=== PATIENT | female | born 1980 | race Hispanic/Latino ===

== ENCOUNTER 2017-11-01 14:10 | Emergency (ER) | payer MEDICAID ==
[2017-11-01 15:10] VITALS: BMI 27.4
[2017-11-01 15:26] VITALS: BP 117/74; PULSE 85; RESP 16; TEMP 98.5; O2SAT 100
[2017-11-01 16:10] LABS: URINE BILIRUBIN NEGATIVE (NEGATIVE); URINE BLOOD NEGATIVE (NEGATIVE); URINE GLUCOSE (UA) NEGATIVE (NEGATIVE); URINE LEUKOCYTE ESTERASE NEGATIVE Leu/uL (NEGATIVE); URINE PROTEIN NEGATIVE mg/dL (<30 mg/dL); URINE UROBILINOGEN 0.2 E.U./dL (<1 E.U./dL)
[2017-11-01 16:11] LABS: URINE APPEARANCE CLEAR (CLEAR); URINE COLOR LIGHT YELLOW (YELLOW)
--- NOTE | 2017-11-01 16:23 | ED PDOC ---
Arrival/HPI - General Chief Complaint: Female Genitourinary Time Seen by Provider: 11/01/17 14:30 Historian: Patient - History of Present Illness Narrative History of Present Illness (Text): 11/01/17 16:19 Pt is a 37 yr old f with PMH kidney infection 17 yrs ago, presents today with pain on urination, low back and suprapubic pain and fevers for the past 3-4 days. Denies hematuria, trauma, n/v/d, cp, sob or any other complaints. Pt reports IV drug use in the past and suboxone treatments with last dose approx 5 days ago. Past surgical history includes inguinal hernia with mesh repair. 11/01/17 17:29 Time/Duration: 1 week Symptom Onset: Gradual Symptom Course: Unchanged Quality: Aching, Pressure Activities at Onset: Rest Context: Home, Work Past Medical History - Infectious Disease Hx of Infectious Diseases: None - Cardiac Hx Cardiac Disorders: No - Pulmonary Hx Respiratory Disorders: Yes Hx Asthma: Yes - Neurological Hx Neurological Disorder: No - HEENT Hx HEENT Disorder: No - Renal Hx Renal Disorder: No - Endocrine/Metabolic Hx Endocrine Disorders: No - Hematological/Oncological Hx Blood Disorders: No - Integumentary Hx Dermatological Disorder: No - Musculoskeletal/Rheumatological Hx Musculoskeletal Disorders: No - Gastrointestinal Hx Gastrointestinal Disorders: No - Genitourinary/Gynecological Hx Genitourinary Disorders: No - Psychiatric Hx Psychophysiologic Disorder: No Hx Substance Use: No - Anesthesia Hx Anesthesia: No Family/Social History Family/Social History: No Known Family HX Smoking Status: Light Smoker < 10 Cigarettes Daily Hx Alcohol Use: Yes Frequency of alcohol use: Socially Hx Substance Use: Yes Substance used: Previous IV drug user; Suboxone Route: Oral, Intravenous/IM Hx Substance Use Treatment: Yes (Previous IV drug user; Suboxone ) Allergies/Home Meds Allergies/Adverse Reactions: Allergies No Known Allergies Allergy (Verified 11/01/17 15:10) Review of Systems - Review of Systems Constitutional: Normal, Fevers, Night Sweats Eyes: Normal ENT: Normal Respiratory: Normal Cardiovascular: Normal Gastrointestinal: Normal, Abdominal Pain (lower abdominal) Genitourinary Female: Normal Musculoskeletal: Normal, Back Pain Skin: Normal Neurological: Normal Endocrine: Normal Hemo/Lymphatic: Normal Psychiatric: Normal Physical Exam Vital Signs Reviewed: Yes Vital Signs Temp Pulse Resp BP Pulse Ox 11/01/17 15:25 98.5 F 85 16 117/74 100 Temperature: Afebrile Blood Pressure: Normal Pulse: Regular Respiratory Rate: Normal Appearance: Positive for: Non-Toxic, Comfortable Pain Distress: Moderate Mental Status: Positive for: Alert and Oriented X 3 - Systems Exam Head: Present: Atraumatic, Normocephalic Pupils: Present: PERRL Extroacular Muscles: Present: EOMI Conjunctiva: Present: Normal Mouth: Present: Moist Mucous Membranes Neck: Present: Normal Range of Motion Respiratory/Chest: Present: Clear to Auscultation, Good Air Exchange. No: Respiratory Distress, Accessory Muscle Use Cardiovascular: Present: Regular Rate and Rhythm, Normal S1, S2. No: Murmurs Abdomen: Present: Tenderness (suprapubic pain), Normal Bowel Sounds. No: Distention, Peritoneal Signs Back: Present: Normal Inspection, CVA Tenderness Upper Extremity: Present: Normal Inspection. No: Cyanosis, Edema Lower Extremity: Present: Normal Inspection. No: Edema Neurological: Present: GCS=15, CN II-XII Intact, Speech Normal Skin: Present: Warm, Dry, Normal Color. No: Rashes Psychiatric: Present: Alert, Oriented x 3, Normal Insight, Normal Concentration Medical Decision Making ED Course and Treatment: 11/01/17 16:21 Impression Pt is a 37 yr old f with PMH kidney infection 17 yrs ago, presents today with pain on urination, low back and suprapubic pain and fevers for the past 3-4 days. (+) Right CVA tenderness Plan UA poc hcg assess and dispo Progress Note DW pt results of UA; CT suggested to r/o stones Pt resting comfortably, no apparent discomfort Advised to take Macrobid only if dysuria and frequency do not resolve F/u with PMD CT revealed fecal bulk; colace prescribed and pt informed on causes VSS on DC, ambulated well out of the ED 11/01/17 17:15 - Lab Interpretations Lab Results: Lab Results 11/01/17 16:03: Urine Color Light yellow, Urine Appearance Clear, Urine pH 6.0, Ur Specific [place] <= 1.005, Urine Protein Negative, Urine Glucose (UA) Negative, Urine Ketones Negative, Urine Blood Negative, Urine Nitrate Negative, Urine Bilirubin Negative, Urine Urobilinogen 0.2, Ur Leukocyte Esterase Negative I have reviewed the lab results: Yes (UA unremarkable) - RAD Interpretation Narrative RAD Interpretations (Text): 11/01/17 17:36 LOWER THORAX: Unremarkable. LIVER: Unremarkable. No gross lesion or ductal dilatation. GALLBLADDER AND BILE DUCTS: Unremarkable. PANCREAS: Unremarkable. No gross lesion or ductal dilatation. SPLEEN: Unremarkable. ADRENALS: Unremarkable. No mass. KIDNEYS AND URETERS: Unremarkable. No hydronephrosis. No solid mass. VASCULATURE: Unremarkable. No aortic aneurysm. BOWEL: Constipation without fecal impaction or obstruction. APPENDIX: Surgical clips at the base of the cecum indicative of prior appendectomy PERITONEUM: Unremarkable. No free fluid. No free air. LYMPH NODES: Unremarkable. No enlarged lymph nodes. BLADDER: Unremarkable. REPRODUCTIVE: Unremarkable. BONES: No acute fractureTech. OTHER FINDINGS: None. IMPRESSION: No acute findings related to/accounting for the clinical presentation. Additional benign and/or incidental findings described above. Radiology Orders: 11/01/17 16:27 ABD & PELVIS W/O PO OR IV CONT [CT] Stat Disposition/Present on Arrival - Present on Arrival Any Indicators Present on Arrival: Yes History of DVT/PE: No History of Uncontrolled Diabetes: No Urinary Catheter: No History of Decub. Ulcer: No History Surgical Site Infection Following: None - Disposition Have Diagnosis and Disposition been Completed?: Yes Diagnosis: Dysuria, Constipation Disposition: HOME/ ROUTINE Disposition Time: 17:38 Patient Plan: Discharge Condition: GOOD Discharge Instructions (ExitCare): Constipation in Adults, Dysuria, Adult (DC) Additional Instructions: Please follow up with your Primary Care Doctor in the next 24 hrs. If you have worsening pain with fever, return to the emergency department. Prescriptions: Acetaminophen [Acetaminophen Extra Strength] 500 mg PO Q6 #20 tablet Docusate Sodium [Colace] 200 mg PO DAILY #5 capsule Nitrofurantoin Macrocrystal [Nitrofurantoin] 100 mg PO BID 7 Days #14 capsule Referrals: PCP,NO [Primary Care Provider] - Follow up with primary Forms: [facility] [employer] [facility] (Greenlandic), WORK NOTE
--- NOTE | 2017-11-01 17:20 | CT ---
PROCEDURE: CT Abdomen and Pelvis without intravenous contrast HISTORY: CVA tenderness Negative test (concurrent with this examination). COMPARISON: None. TECHNIQUE: Unenhanced study. Neither oral nor intravenous contrast administered. Radiation dose: Total exam DLP = 380.10 mGy-cm. This CT exam was performed using one or more of the following dose reduction techniques: Automated exposure control, adjustment of the mA and/or kV according to patient size, and/or use of iterative reconstruction technique. FINDINGS: LOWER THORAX: Unremarkable. LIVER: Unremarkable. No gross lesion or ductal dilatation. GALLBLADDER AND BILE DUCTS: Unremarkable. PANCREAS: Unremarkable. No gross lesion or ductal dilatation. SPLEEN: Unremarkable. ADRENALS: Unremarkable. No mass. KIDNEYS AND URETERS: Unremarkable. No hydronephrosis. No solid mass. VASCULATURE: Unremarkable. No aortic aneurysm. BOWEL: Constipation without fecal impaction or obstruction. APPENDIX: Surgical clips at the base of the cecum indicative of prior appendectomy PERITONEUM: Unremarkable. No free fluid. No free air. LYMPH NODES: Unremarkable. No enlarged lymph nodes. BLADDER: Unremarkable. REPRODUCTIVE: Unremarkable. BONES: No acute fractureTech. OTHER FINDINGS: None. IMPRESSION: No acute findings related to/accounting for the clinical presentation. Additional benign and/or incidental findings described above.
== END 2017-11-01 18:00 | disposition home or self-care (01) ==
LOC: ED 14:10
DX: K59.00 Constipation, unspecified (principal); R30.0 Dysuria; F17.210 Nicotine dependence, cigarettes, uncomplicated

== ENCOUNTER 2017-12-12 12:33 | Emergency (ER) | payer MEDICAID ==
[2017-12-12 12:33] VITALS: BMI 27.4
[2017-12-12 13:50] VITALS: O2SAT 100
[2017-12-12 15:06] LABS: URINE APPEARANCE CLEAR (CLEAR); URINE BILIRUBIN NEGATIVE (NEGATIVE); URINE BLOOD NEGATIVE (NEGATIVE); URINE COLOR YELLOW (YELLOW); URINE GLUCOSE (UA) NEGATIVE (NEGATIVE); URINE LEUKOCYTE ESTERASE NEGATIVE Leu/uL (NEGATIVE); URINE PROTEIN NEGATIVE mg/dL (<30 mg/dL); URINE UROBILINOGEN 0.2 E.U./dL (<1 E.U./dL)
[2017-12-12 15:10] LABS: BASO # 0.02 K/mm3 (0.0-2.0); BASO % 0.2 % (0.0-3.0); EOS % 0.3 % (1.5-5.0); GRAN # 5.67 (1.4-6.5); GRAN % 60.4 % (50.0-68.0); HEMOGLOBIN 10.3 g/dL (12.0-16.0); LYMPH # 3.1 (1.2-3.4); LYMPH % 33.3 % (22.0-35.0); MEAN CELL VOLUME 79.6 fl (80.0-105.0); MEAN CORPUSCULAR HEMOGLOBIN 24.5 pg (25.0-35.0); MEAN CORPUSCULAR HGB CONC 30.7 g/dl (31.0-37.0); MEAN PLATELET VOLUME 9.7 fl (7.0-11.0); MONO # 0.5 (0.1-0.6); MONO % 5.8 % (1.0-6.0); RBC 4.21 10^6/uL (3.5-6.1); RED CELL DISTRIBUTION WIDTH 15.9 % (11.5-14.5); WHITE BLOOD COUNT 9.4 10^3/ul (4.5-11.0)
[2017-12-12 15:22] LABS: ALB/GLOB RATIO 1.3 (1.1-1.8); ALBUMIN 4.4 g/dL (3.0-4.8); ALT/SGPT 46 U/L (7-56); AST/SGOT 31 U/L (14-36); BLOOD UREA NITROGEN 14 mg/dL (7-21); CALCIUM 9.5 mg/dL (8.4-10.5); GFR AFRICAN-AMERICAN > 60; GFR NON-AFRICAN AMERICAN > 60
--- NOTE | 2017-12-12 16:11 | ED PDOC ---
Arrival/HPI - General Chief Complaint: Abnormal Skin Integrity Time Seen by Provider: 12/12/17 14:33 Historian: Patient - History of Present Illness Narrative History of Present Illness (Text): 12/12/17 16:07 37-year-old female presents today with pruritus for the past 2 weeks. Patient states that she's noticed that the entire body has been intermittently itchy for the past 2 months. Patient denies new soaps lotions or detergents or perfumes. Patient denies any new medications. Patient states she is a history of hepatitis C from previous drug use. Patient states she is completely clean from any drug use. Patient denies chest pain or shortness of breath. Denies fevers or chills. Patient denies abdominal pain. No nausea or vomiting. Patient denies anyone else with similar symptoms. No other complaints Time/Duration: > week (2 weeks) Past Medical History - Provider Review Nursing Documentation Reviewed: Yes - Travel History Have you recently traveled outside [place] w/in the past 3 mons?: No - Infectious Disease Hx of Infectious Diseases: None - Cardiac Hx Cardiac Disorders: No - Pulmonary Hx Respiratory Disorders: Yes Hx Asthma: Yes - Neurological Hx Neurological Disorder: No - HEENT Hx HEENT Disorder: No - Renal Hx Renal Disorder: No - Endocrine/Metabolic Hx Endocrine Disorders: No - Hematological/Oncological Hx Hepatitis C: Yes - Integumentary Hx Dermatological Disorder: No - Musculoskeletal/Rheumatological Hx Musculoskeletal Disorders: No - Gastrointestinal Hx Gastrointestinal Disorders: No - Genitourinary/Gynecological Hx Genitourinary Disorders: No - Psychiatric Hx Psychophysiologic Disorder: No Hx Substance Use: Yes - Surgical History Hx Appendectomy: Yes Hx Section: Yes (4x) Other/Comment: lymph node in neck removed. - Anesthesia Hx Anesthesia: No Family/Social History - Physician Review Nursing Documentation Reviewed: Yes Family/Social History: Unknown Family HX Smoking Status: Light Smoker < 10 Cigarettes Daily Hx Alcohol Use: No Hx Substance Use: Yes Substance used: Previous IV drug user; Suboxone Hx Substance Use Treatment: Yes (Previous IV drug user; Suboxone ) Allergies/Home Meds Allergies/Adverse Reactions: Allergies No Known Allergies Allergy (Verified 12/12/17 14:26) Review of Systems - Review of Systems Constitutional: absent: Fatigue, Fevers Respiratory: absent: SOB, Cough Cardiovascular: absent: Chest Pain, Palpitations Gastrointestinal: absent: Abdominal Pain, Nausea, Vomiting Genitourinary Female: absent: Dysuria, Frequency, Hematuria Musculoskeletal: absent: Arthralgias, Back Pain, Neck Pain Skin: Pruritis. absent: Rash Neurological: absent: Dizziness Psychiatric: absent: Anxiety, Depression, Suicidal Ideation Physical Exam Vital Signs Reviewed: Yes Vital Signs Temp Pulse Resp BP Pulse Ox 12/12/17 16:03 79 18 135/71 100 12/12/17 13:50 98.3 F 83 18 139/78 100 Temperature: Afebrile Blood Pressure: Normal Pulse: Regular Respiratory Rate: Normal Appearance: Positive for: Well-Appearing, Non-Toxic, Comfortable Pain Distress: None Mental Status: Positive for: Alert and Oriented X 3 - Systems Exam Head: Present: Atraumatic Mouth: Present: Moist Mucous Membranes Pharnyx: Present: Normal Respiratory/Chest: Present: Clear to Auscultation, Good Air Exchange. No: Respiratory Distress, Accessory Muscle Use Cardiovascular: Present: Regular Rate and Rhythm, Normal S1, S2. No: Murmurs Abdomen: No: Tenderness, Rebound, Guarding Back: Present: Normal Inspection Upper Extremity: Present: Normal ROM Lower Extremity: Present: Normal ROM Neurological: Present: GCS=15, Speech Normal Skin: Present: Warm, Dry, Normal Color. No: Rashes Psychiatric: Present: Alert, Oriented x 3 Medical Decision Making ED Course and Treatment: 12/12/17 16:09 Patient is nontoxic well-appearing in no distress with stable vital signs no angioedema. Lungs are clear to auscultation bilaterally there is no wheezing noted. The airway is patent benadryl po pepcid po cbc; wnl cmp;wnl ua; wnl Patient reassessment:pt non toxic well appearing. no distress I advised taking Benadryl every 6 hours as needed for itch. Advised patient to follow up with primary care physician within the next 2 days and return if symptoms worsen persist or if new symptoms develop I will place the patient on permethrin 5%: I advised to rub the cream from neck down to leaving on for 10-12 hours and then rinsing. Patient verbalizes understanding of discharge instructions and need for immediate followup. all aspects of this case were discussed the attending of record. Impression :pruritis Benadryl one tablet every 6 hours as needed for itch pepcid 1 tablet daily. Permethrin 5%: Rub from neck down leave on for 10-12 hours and then rinse Followup with primary care physician within the next 2 days Followup with the [employer] boss Return if symptoms worsen persist or if new symptoms develop Return immediately if chest pain, shortness of breath, difficulty breathing or speaking develop. - Lab Interpretations Lab Results: 12/12/17 15:00 12/12/17 15:00 Lab Results 12/12/17 15:00: WBC 9.4, RBC 4.21, Hgb 10.3 L, Hct 33.5 L, MCV 79.6 L, MCH 24.5 L, MCHC 30.7 L, RDW 15.9 H, Plt Count 406, MPV 9.7, Gran % 60.4, Lymph % (Auto) 33.3, [place] % (Auto) 5.8, Eos % (Auto) 0.3 L, Baso % (Auto) 0.2, Gran # 5.67, Lymph # (Auto) 3.1, [place] # (Auto) 0.5, Eos # (Auto) 0.0, Baso # (Auto) 0.02 12/12/17 15:00: Sodium 146, Potassium 4.2, Chloride 109 H, Carbon Dioxide 25, Anion Gap 17, BUN 14, Creatinine 0.7, Est GFR ( Amer) > 60, Est GFR (Non- Af Amer) > 60, Random Glucose 85, Calcium 9.5, Total Bilirubin 0.2, AST 31, ALT 46, Alkaline Phosphatase 75, Total Protein 7.9, Albumin 4.4, Globulin 3.5, Albumin/Globulin Ratio 1.3 12/12/17 14:45: Urine Color Yellow, Urine Appearance Clear, Urine pH 6.0, Ur Specific [place] 1.025, Urine Protein Negative, Urine Glucose (UA) Negative, Urine Ketones Negative, Urine Blood Negative, Urine Nitrate Negative, Urine Bilirubin Negative, Urine Urobilinogen 0.2, Ur Leukocyte Esterase Negative - Medication Orders Current Medication Orders: Discontinued Medications Diphenhydramine HCl (Benadryl) 25 mg PO ONCE ONE Stop: 12/12/17 14:41 Last Admin: 12/12/17 14:56 Dose: 25 mg Famotidine (Pepcid) 20 mg PO STAT STA Stop: 12/12/17 14:41 Last Admin: 12/12/17 14:56 Dose: 20 mg Disposition/Present on Arrival - Present on Arrival Any Indicators Present on Arrival: No History of DVT/PE: No History of Uncontrolled Diabetes: No Urinary Catheter: No History of Decub. Ulcer: No History Surgical Site Infection Following: None - Disposition Have Diagnosis and Disposition been Completed?: Yes Diagnosis: Generalized pruritus Disposition: HOME/ ROUTINE Disposition Time: 16:12 Patient Plan: Discharge Condition: GOOD Discharge Instructions (ExitCare): Itchy Skin Additional Instructions: Benadryl one tablet every 6 hours as needed for itch pepcid 1 tablet daily. Permethrin 5%: Rub from neck down leave on for 10-12 hours and then rinse Followup with primary care physician within the next 2 days Followup with the [employer] boss Return if symptoms worsen persist or if new symptoms develop Return immediately if chest pain, shortness of breath, difficulty breathing or speaking develop. Prescriptions: DiphenhydrAMINE [Benadryl] 25 mg PO Q6H #20 cap Famotidine [Pepcid] 20 mg PO DAILY #30 tab Permethrin 5% [Permethrin 5% Cream] 1 appl TP ONCE #1 tube Referrals: Connor Starr MD [Staff Provider] - Follow up with primary Rosana Chan MD [Staff Provider] - [place] up [place] [facility] [place] [facility] [place] - Follow up with primary Forms: [facility] (Frisian), WORK NOTE
[2017-12-12 16:26] VITALS: BP 130/65; PULSE 75; RESP 19; TEMP 98
== END 2017-12-12 16:25 | disposition home or self-care (01) ==
LOC: ED 12:33
DX: L29.9 Pruritus, unspecified (principal); F17.210 Nicotine dependence, cigarettes, uncomplicated

== ENCOUNTER 2018-01-01 07:35 | Emergency (ER) | payer MEDICAID ==
[2018-01-01 07:36] VITALS: BMI 27.4
[2018-01-01 07:46] VITALS: TEMP 98.2; O2SAT 100
--- NOTE | 2018-01-01 08:07 | ED PDOC ---
Arrival/HPI - General Chief Complaint: Abnormal Skin Integrity Time Seen by Provider: 01/01/18 07:51 Historian: Patient - History of Present Illness Narrative History of Present Illness (Text): 01/01/18 08:03 A 37 year old female, with no significant past medical history, presents to the emergency department with right buttock discomfort when she noticed a small boil , which occurred within the last 24 hours. The patient denies any fever, chills , unable to sit, anal contiguity, significant cellulitis, or any other complaints at this time. Time/Duration: 24 hours Symptom Onset: Gradual Symptom Course: Unchanged Severity Level: Mild Context: Sitting, Home Past Medical History - Provider Review Nursing Documentation Reviewed: Yes - Infectious Disease Hx of Infectious Diseases: None - Cardiac Hx Cardiac Disorders: No - Pulmonary Hx Respiratory Disorders: Yes Hx Asthma: Yes - Neurological Hx Neurological Disorder: No - HEENT Hx HEENT Disorder: No - Renal Hx Renal Disorder: No - Endocrine/Metabolic Hx Endocrine Disorders: No - Hematological/Oncological Hx Blood Disorders: Yes Hx Hepatitis C: Yes - Integumentary Hx Dermatological Disorder: No - Musculoskeletal/Rheumatological Hx Musculoskeletal Disorders: No - Gastrointestinal Hx Gastrointestinal Disorders: No - Genitourinary/Gynecological Hx Genitourinary Disorders: No - Psychiatric Hx Psychophysiologic Disorder: No Hx Substance Use: No (Former IV Drug User) - Surgical History Hx Appendectomy: Yes Hx Section: Yes (4) Other/Comment: lymph node in neck removed. - Anesthesia Hx Anesthesia: No Family/Social History - Physician Review Nursing Documentation Reviewed: Yes Family/Social History: No Known Family HX Smoking Status: Former Smoker Hx Alcohol Use: No Hx Substance Use: No (Former IV Drug User) Substance used: Previous IV drug user; Suboxone Hx Substance Use Treatment: Yes (Previous IV drug user; Suboxone ) Allergies/Home Meds Allergies/Adverse Reactions: Allergies No Known Allergies Allergy (Verified 01/01/18 07:46) Review of Systems - Physician Review All systems were reviewed & negative as marked: Yes - Review of Systems Constitutional: absent: Fevers Skin: Other (boil on right buttock ) Physical Exam Vital Signs Reviewed: Yes Vital Signs Temp Pulse Resp BP Pulse Ox 01/01/18 08:30 98.2 F 60 18 113/70 100 01/01/18 07:47 98.2 F 72 16 116/67 100 01/01/18 07:46 98.2 F 72 16 116/67 100 Temperature: Afebrile Blood Pressure: Normal Pulse: Regular Respiratory Rate: Normal Appearance: Positive for: Well-Appearing, Non-Toxic, Comfortable Pain Distress: None Mental Status: Positive for: Alert and Oriented X 3 - Systems Exam Head: Present: Atraumatic, Normocephalic Pupils: Present: PERRL Extroacular Muscles: Present: EOMI Conjunctiva: Present: Normal Mouth: Present: Moist Mucous Membranes Neck: Present: Normal Range of Motion Respiratory/Chest: Present: Clear to Auscultation, Good Air Exchange. No: Respiratory Distress, Accessory Muscle Use Cardiovascular: Present: Regular Rate and Rhythm, Normal S1, S2. No: Murmurs Abdomen: No: Tenderness, Distention, Peritoneal Signs Back: Present: Normal Inspection Upper Extremity: Present: Normal Inspection. No: Cyanosis, Edema Lower Extremity: Present: Normal Inspection. No: Edema Neurological: Present: GCS=15, CN II-XII Intact, Speech Normal Skin: Present: Warm, Dry, Normal Color, Other (right midline comedone with limited cutaneous depth - no cellulitis). No: Rashes Psychiatric: Present: Alert, Oriented x 3, Normal Insight, Normal Concentration Medical Decision Making ED Course and Treatment: 01/01/18 08:09 The patient will be discharged with routine of antibiotics. - Medication Orders Current Medication Orders: Discontinued Medications Cephalexin Monohydrate (Keflex) 500 mg PO STAT STA PRN Reason: Protocol Stop: 01/01/18 08:05 Last Admin: 01/01/18 08:23 Dose: 500 mg Ibuprofen (Motrin Tab) 800 mg PO STAT STA Stop: 01/01/18 08:08 Last Admin: 01/01/18 08:23 Dose: 800 mg - PA / GLASS MECHANIC / Resident Statement MD/DO has reviewed & agrees with the documentation as recorded. - Scribe Statement The provider has reviewed the documentation as recorded by the Saray Swanson Provider Scribe Attestation: All medical record entries made by the Scribe were at my direction and personally dictated by me. I have reviewed the chart and agree that the record accurately reflects my personal performance of the history, physical exam, medical decision making, and the department course for this patient. I have also personally directed, reviewed, and agree with the discharge instructions and disposition. Disposition/Present on Arrival - Present on Arrival Any Indicators Present on Arrival: Yes History of DVT/PE: No History of Uncontrolled Diabetes: No Urinary Catheter: No History of Decub. Ulcer: No History Surgical Site Infection Following: None - Disposition Have Diagnosis and Disposition been Completed?: Yes Diagnosis: Giant comedone Disposition: HOME/ ROUTINE Disposition Time: 08:20 Patient Plan: Discharge Condition: IMPROVED Discharge Instructions (ExitCare): Acne (ED) Print Language: MALAY Additional Instructions: Please practice hot soaks with hot wet towels 15-20 mins as many times / day to facillitate its eruption and drainaige. Take the antibiotics as prescribed. Take the motrin as needed. Return if you develop fever/worseining spreading redness and tenderness. Prescriptions: Cephalexin [Keflex] 500 mg PO Q6 #20 capsule Ibuprofen [Motrin] 600 mg PO Q6 PRN #50 tab PRN Reason: Pain, Moderate (4-7) Forms: [facility] ([place] Islander)
[2018-01-01 08:36] VITALS: BP 113/70; PULSE 60; RESP 18
== END 2018-01-01 08:30 | disposition home or self-care (01) ==
LOC: ED 07:35
DX: L70.0 Acne vulgaris (principal)

== ENCOUNTER 2018-02-11 09:26 | Emergency (ER) | payer MEDICAID ==
[2018-02-11 09:26] VITALS: BMI 27.4
[2018-02-11 09:52] VITALS: TEMP 98.7; O2SAT 100
--- NOTE | 2018-02-11 10:01 | ED PDOC ---
Arrival/HPI - General Chief Complaint: Female Genitourinary Time Seen by Provider: 02/11/18 09:48 Historian: Patient - History of Present Illness Narrative History of Present Illness (Text): 02/11/18 09:56 37-year-old female presents today with dysuria and a burning sensation to the vagina. Patient states she had unprotected sex with her ex-boyfriend 2 weeks ago. Patient states she found out that the boyfriend was sleeping with someone else and she states that she has been having this burning sensation within the vagina. She denies any lesions. She states that there is a slight white discharge. She denies abdominal pain. No nausea or vomiting. She denies back pain. No chest pain or shortness of breath. Patient states she is concerned for STDs. Time/Duration: 1 week Symptom Onset: Gradual Symptom Course: Unchanged Quality: Burning Severity Level: Mild Past Medical History - Provider Review Nursing Documentation Reviewed: Yes - Travel History Have you recently traveled outside [place] w/in the past 3 mons?: No - Infectious Disease Hx of Infectious Diseases: None - Tetanus Immunization Tetanus Immunization: Unknown - Cardiac Hx Cardiac Disorders: No - Pulmonary Hx Respiratory Disorders: Yes Hx Asthma: Yes - Neurological Hx Neurological Disorder: No - HEENT Hx HEENT Disorder: No - Renal Hx Renal Disorder: No - Endocrine/Metabolic Hx Endocrine Disorders: No - Hematological/Oncological Hx Blood Disorders: Yes Hx Hepatitis C: Yes - Integumentary Hx Dermatological Disorder: No - Musculoskeletal/Rheumatological Hx Musculoskeletal Disorders: No - Gastrointestinal Hx Gastrointestinal Disorders: No - Genitourinary/Gynecological Hx Genitourinary Disorders: No - Psychiatric Hx Psychophysiologic Disorder: No Hx Substance Use: No (Former IV Drug User) - Surgical History Hx Appendectomy: Yes Hx Section: Yes (4) Other/Comment: lymph node in neck removed. - Anesthesia Hx Anesthesia: Yes Family/Social History - Physician Review Nursing Documentation Reviewed: Yes Family/Social History: Unknown Family HX Smoking Status: Former Smoker Hx Alcohol Use: No Hx Substance Use: No (Former IV Drug User) Substance used: Previous IV drug user; Suboxone Hx Substance Use Treatment: Yes (Previous IV drug user; Suboxone ) Allergies/Home Meds Allergies/Adverse Reactions: Allergies No Known Allergies Allergy (Verified 01/01/18 07:46) Review of Systems - Review of Systems Constitutional: absent: Fatigue, Fevers Respiratory: absent: SOB, Cough Cardiovascular: absent: Chest Pain, Palpitations Gastrointestinal: absent: Abdominal Pain, Diarrhea, Nausea, Vomiting Genitourinary Female: Dysuria, Vaginal Discharge. absent: Frequency, Hematuria , Urine Output Changes, Vaginal Bleeding Musculoskeletal: absent: Arthralgias, Back Pain, Neck Pain Skin: Pruritis (vaginal itch). absent: Rash Neurological: absent: Headache, Dizziness Psychiatric: absent: Anxiety, Depression, Suicidal Ideation Physical Exam Vital Signs Reviewed: Yes Vital Signs Temp Pulse Resp BP Pulse Ox 02/11/18 09:42 98.7 F 84 16 116/66 100 Temperature: Afebrile Blood Pressure: Normal Pulse: Regular Respiratory Rate: Normal Appearance: Positive for: Well-Appearing, Non-Toxic, Comfortable Pain Distress: None Mental Status: Positive for: Alert and Oriented X 3 - Systems Exam Head: Present: Atraumatic Mouth: Present: Moist Mucous Membranes Neck: Present: Normal Range of Motion Respiratory/Chest: Present: Clear to Auscultation, Good Air Exchange. No: Respiratory Distress, Accessory Muscle Use Cardiovascular: Present: Regular Rate and Rhythm, Normal S1, S2. No: Murmurs Abdomen: No: Tenderness, Distention, Peritoneal Signs, Rebound, Guarding Genitourinary/Pelvic Exam: Present: Normal External Genitalia, Vaginal Discharge (white thin discharge noted), Cervical os Closed, Other (chaparoned by jeannie So). No: Vaginal Bleeding, Vaginal Lesions, Adenexal Tenderness , Adenexal Mass, Cervical Motion Tendernes, Odor Back: Present: Normal Inspection. No: CVA Tenderness Neurological: Present: GCS=15, Speech Normal Skin: Present: Warm, Dry, Normal Color. No: Rashes Psychiatric: Present: Alert, Oriented x 3 Medical Decision Making ED Course and Treatment: 02/11/18 10:42 Patient is nontoxic well-appearing in no distress with stable vital signs Urinalysis: + moderate luekocytes, + blood, + bacteria Urine culture: pending gc/chlamydia cultures pending: rocephin and zithromax advised follow up with the primary care physician within the next 2 days. advised immediate return if symptoms worsen,persist or if new symptoms develop. advised to refrain from sex and have all sexual partners tested and treated. Patient verbalizes understanding of discharge instructions and need for immediate followup. all aspects of this case were discussed the attending of record. Impression: Urinary tract infection, vaginal discharge Motrin every 6 hours as needed for pain Keflex one capsule twice daily 7 days Followup with primary care physician within the next 2 days Follow up with the urologist for the next 2 days Return if symptoms worsen persist or if new symptoms develop - Lab Interpretations Lab Results: Lab Results 02/11/18 10:05: Urine Color Light yellow, Urine Appearance Sl cloudy, Urine pH 6.0, Ur Specific Tas[place] <= 1.005, Urine Protein Negative, Urine Glucose (UA) Negative, Urine Ketones Negative, Urine Blood Large H, Urine Nitrate Negative, Urine Bilirubin Negative, Urine Urobilinogen 0.2, Ur Leukocyte Esterase Moderate H, Urine RBC Tntc, Urine WBC 5 - 10, Ur Epithelial Cells 3 - 4, Urine Bacteria Few - Medication Orders Current Medication Orders: Discontinued Medications Azithromycin (Zithromax) 1,000 mg PO STAT STA PRN Reason: Protocol Stop: 02/11/18 11:42 Ceftriaxone Sodium (Rocephin) 250 mg IM STAT STA PRN Reason: Protocol Stop: 02/11/18 11:42 Disposition/Present on Arrival - Present on Arrival Any Indicators Present on Arrival: No History of DVT/PE: No History of Uncontrolled Diabetes: No Urinary Catheter: No History of Decub. Ulcer: No History Surgical Site Infection Following: None - Disposition Have Diagnosis and Disposition been Completed?: Yes Diagnosis: Urinary tract infection Disposition: HOME/ ROUTINE Disposition Time: 11:00 Patient Plan: Discharge Patient Problems: Current Active Problems Problem Status Onset Urinary tract infection Acute Condition: GOOD Discharge Instructions (ExitCare): Urinary Tract Infections in Adults, Vaginal Discharge in Adults Additional Instructions: Motrin every 6 hours as needed for pain Keflex one capsule twice daily 7 days Followup with primary care physician within the next 2 days Follow up with the urologist for the next 2 days Return if symptoms worsen persist or if new symptoms develop Prescriptions: Cephalexin [Keflex] 500 mg PO BID #14 capsule Ibuprofen [Motrin] 600 mg PO Q6H PRN #20 tab PRN Reason: pain/fever reduction Referrals: David Miller MD [Staff Provider] - Follow up with primary Gaby Bailey MD [Staff Provider] - Follow up with primary [facility] [Outside] - Follow up with primary Forms: [employer] (Bulgarian), WORK NOTE
[2018-02-11 10:13] LABS: URINE BILIRUBIN NEGATIVE (NEGATIVE); URINE BLOOD LARGE (NEGATIVE); URINE GLUCOSE (UA) NEGATIVE (NEGATIVE); URINE LEUKOCYTE ESTERASE MODERATE Leu/uL (NEGATIVE); URINE PROTEIN NEGATIVE mg/dL (<30 mg/dL); URINE UROBILINOGEN 0.2 E.U./dL (<1 E.U./dL)
[2018-02-11 10:37] LABS: URINE APPEARANCE SL CLOUDY (CLEAR)
[2018-02-11 10:38] LABS: URINE BACTERIA FEW (NEG); URINE COLOR LIGHT YELLOW (YELLOW); URINE RBC TNTC /hpf (0-2)
[2018-02-11] MEDS ORDERED: cefTRIAXone (Rocephin) 250 mg Inj IM STA (11:41)
[2018-02-11 12:38] VITALS: BP 130/78; PULSE 76; RESP 18
== END 2018-02-11 12:37 | disposition home or self-care (01) ==
LOC: ED 09:26
DX: N39.0 Urinary tract infection, site not specified (principal)
CPT/HCPCS: 81001; 87086; 87491; 87591; 96372; 99284; J0696

== ENCOUNTER 2018-02-23 21:14 | Emergency (ER) | payer MEDICAID ==
[2018-02-23 21:15] VITALS: BMI 27.4
[2018-02-23 21:22] VITALS: RESP 18; TEMP 98.5
--- NOTE | 2018-02-23 21:39 | ED PDOC ---
Arrival/HPI - General Chief Complaint: Medical Clearance Time Seen by Provider: 02/23/18 21:16 Historian: Patient - History of Present Illness Narrative History of Present Illness (Text): 02/23/18 21:36 37yo female with no pmhx who present to ED in reference to a urine test she had done here on 02/11/18. States she was told that she had a bacteria in her urine culture when she went to medical records today for her records. states she came to ED for the treatment, hence she have no PMD. States she was seen in ED for "bladder infection" and was discharged with unknown antibiotics. she denies any current dysuria, abdominal pain, back pain, fever, chills, nausea, hematuria, vaginal discharge, any other complaint. Past Medical History - Provider Review Nursing Documentation Reviewed: Yes - Infectious Disease Hx of Infectious Diseases: None - Tetanus Immunization Tetanus Immunization: Unknown - Cardiac Hx Cardiac Disorders: No - Pulmonary Hx Respiratory Disorders: Yes Hx Asthma: Yes - Neurological Hx Neurological Disorder: No - HEENT Hx HEENT Disorder: No - Renal Hx Renal Disorder: No - Endocrine/Metabolic Hx Endocrine Disorders: No - Hematological/Oncological Hx Blood Disorders: Yes Hx Hepatitis C: Yes - Integumentary Hx Dermatological Disorder: No - Musculoskeletal/Rheumatological Hx Musculoskeletal Disorders: No - Gastrointestinal Hx Gastrointestinal Disorders: No - Genitourinary/Gynecological Hx Genitourinary Disorders: No - Psychiatric Hx Psychophysiologic Disorder: No Hx Substance Use: No (Former IV Drug User) - Surgical History Hx Appendectomy: Yes Hx Section: Yes (4) Other/Comment: lymph node in neck removed. - Anesthesia Hx Anesthesia: No Family/Social History - Physician Review Nursing Documentation Reviewed: Yes Family/Social History: Unknown Family HX Smoking Status: Former Smoker Hx Alcohol Use: No Hx Substance Use: No (Former IV Drug User) Substance used: Previous IV drug user; Suboxone Hx Substance Use Treatment: Yes (Previous IV drug user; Suboxone ) Allergies/Home Meds Allergies/Adverse Reactions: Allergies No Known Allergies Allergy (Verified 01/01/18 07:46) Review of Systems - Physician Review All systems were reviewed & negative as marked: Yes - Review of Systems Constitutional: Normal, Other (Lab review) Eyes: Normal ENT: Normal Respiratory: Normal Cardiovascular: Normal Gastrointestinal: Normal Genitourinary Female: Normal Musculoskeletal: Normal Skin: Normal Neurological: Normal Endocrine: Normal Hemo/Lymphatic: Normal Psychiatric: Normal Physical Exam Vital Signs Reviewed: Yes Vital Signs Temp Pulse Resp BP Pulse Ox 02/23/18 21:16 98.5 F 84 18 113/75 99 Temperature: Afebrile Blood Pressure: Normal Pulse: Regular Respiratory Rate: Normal Appearance: Positive for: Well-Appearing, Non-Toxic, Comfortable Pain Distress: None Mental Status: Positive for: Alert and Oriented X 3 - Systems Exam Head: Present: Atraumatic, Normocephalic Pupils: Present: PERRL Extroacular Muscles: Present: EOMI Conjunctiva: Present: Normal Mouth: Present: Moist Mucous Membranes Neck: Present: Normal Range of Motion Respiratory/Chest: Present: Clear to Auscultation, Good Air Exchange. No: Respiratory Distress, Accessory Muscle Use Cardiovascular: Present: Regular Rate and Rhythm, Normal S1, S2. No: Murmurs Abdomen: No: Tenderness, Distention, Peritoneal Signs Back: Present: Normal Inspection Upper Extremity: Present: Normal Inspection. No: Cyanosis, Edema Lower Extremity: Present: Normal Inspection. No: Edema Neurological: Present: GCS=15, CN II-XII Intact, Speech Normal Skin: Present: Warm, Dry, Normal Color. No: Rashes Psychiatric: Present: Alert, Oriented x 3, Normal Insight, Normal Concentration Disposition/Present on Arrival - Present on Arrival Any Indicators Present on Arrival: No History of DVT/PE: No History of Uncontrolled Diabetes: No Urinary Catheter: No History of Decub. Ulcer: No History Surgical Site Infection Following: None - Disposition Have Diagnosis and Disposition been Completed?: Yes Diagnosis: Normal exam Disposition: HOME/ ROUTINE Disposition Time: 21:40 Patient Plan: Discharge Condition: STABLE Additional Instructions: Follow up with your doctor Return to ED for any new or worsening symptoms Referrals: Gaby Bailey MD [Staff Provider] - Follow up with primary
[2018-02-23 22:06] VITALS: BP 115/75; PULSE 85; O2SAT 100
== END 2018-02-23 21:45 | disposition home or self-care (01) ==
LOC: ED 21:14
DX: Z04.8 Encounter for examination and observation for other specified reasons (principal)